=== PATIENT | female | born 1990 | race Caucasian/White ===

== ENCOUNTER 2016-03-10 05:27 | Inpatient (IN) | payer OTHER ==
[2016-03-10] MEDS ORDERED: OXYTOCIN 10 UNIT/ML 1 ML VIAL IM PRN (05:37)
[2016-03-10] MEDS ORDERED: CARBOPROST TROMETHAMINE 250 MCG/ML 1 ML AMP IM PRN (05:37)
[2016-03-10] MEDS ORDERED: TERBUTALINE 1 MG/ML VIAL SQ PRN (05:37)
[2016-03-10] MEDS ORDERED: LIDOCAINE 1% (PF) 10 MG/ML (30 ML SDV) SQ PRN (05:37)
[2016-03-10] MEDS ORDERED: METHYLERGONOVINE 0.2 MG/ML 1 ML AMP IM PRN (05:37)
[2016-03-10] MEDS: LACTATED RINGERS 1,000 ML IV SCH ×2 (05:44→20:36)
[2016-03-10] MEDS ORDERED: OXYTOCIN 30 UNITS/500 ML NS 30 UNIT in SALINE 1 500ML.BAG IV SCH (05:45)
[2016-03-10 06:01] LABS: Basophils % (A) 0 %; CHCM 32.7; Eosinophils # (A) 0.2 k/uL (0-0.7); Eosinophils % (A) 2 %; HCT 35.7 % (34.0-46.0); HDW 2.96; HGB 11.1 gm/dL (11.4-16.0); Luc # (Auto) 0.08; Luc % (Auto) 1; Lymphocytes # (A) 2.3 k/uL (1.0-4.8); Lymphocytes % (A) 26 %; MCHC 31.2 g/dL (31.0-37.0); Mean Platelet Volume 8.2; Monocytes # (A) 0.4 k/uL (0-1.0); Monocytes % (A) 5 %; Neutrophils # (A) 5.8 k/uL (1.3-7.7); Neutrophils % (A) 65 %; RBC 4.46 m/uL (3.80-5.40); RDW 14.2 % (11.5-15.5); WBC 8.9 k/uL (3.8-10.6); WBC (Perox) 9.88
[2016-03-10 06:20] VITALS: BMI 38.0
--- NOTE | 2016-03-10 08:46 | P.HPOB ---
History of Present Illness H&P Date: 03/10/16 Chief Complaint: induction of labor 25-year-old presents at 40 weeks for induction of labor. Her cervix is 2- 3 cm dilated, 70% effaced, -2 station. She is mckenna irregularly. heart tones 135-140 with moderate variability and reactive. Review of Systems All systems: negative Constitutional: Denies chills, Denies fever Eyes: denies blurred vision, denies pain Ears, nose, mouth and throat: Denies headache, Denies sore throat Cardiovascular: Denies chest pain, Denies shortness of breath Respiratory: Denies cough Gastrointestinal: Denies abdominal pain, Denies diarrhea, Denies nausea, Denies vomiting Genitourinary: Denies dysuria, Denies hematuria Musculoskeletal: Denies myalgias Integumentary: Denies pruritus, Denies rash Neurological: Denies numbness, Denies weakness Psychiatric: Denies anxiety, Denies depression Endocrine: Denies fatigue, Denies weight change Past Medical History Past Medical History: No Reported History Additional Past Medical History / Comment(s): Obstetric history: First a vaginal delivery. This is her second . She has had care with me since 10 weeks gestation. A+ abs neg, Rub Imm, RPR NR, HEp B neg, HIV NR, toxo neg. normal 1hr GTT. GBS neg. normal anatomy US at 19 weeks. History of Any Multi-Drug Resistant Organisms: None Reported Past Surgical History: No Surgical Hx Reported Past Anesthesia/Blood Transfusion Reactions: No Reported Reaction Past Psychological History: No Psychological Hx Reported Smoking Status: Never smoker Past Alcohol Use History: None Reported Past Drug Use History: None Reported - Past Family History Father Family Medical History: No Reported History Brother(s) Additional Family Medical History / Comment(s): Appendicitis or other. Medications and Allergies Home Medications Medication Instructions Recorded Confirmed Type Pnv with Ca,No.72/Iron/FA 1 tab PO DAILY 03/10/16 03/10/16 History [ Plus Tablet] Allergies Allergy/AdvReac Type Severity Reaction Status Date / Time No Known Allergies Allergy Verified 03/10/16 05:36 Exam Osteopathic Statement: *. No significant issues noted on an osteopathic structural exam other than those noted in the History and Physical/Consult. - Vital Signs Vital signs: Vital Signs Temp Pulse Resp BP 03/10/16 05:35 96.8 F L 71 16 137/90 Intake and Output 03/09/16 03/10/16 03/10/16 22:59 06:59 14:59 Other: # Voids 1 Weight 113.398 kg Heart: Regular rate and rhythm Lungs: Clear to auscultation bilaterally Abdomen: Soft nontender Extremities negative Homans sign Results Result Diagrams: 03/10/16 05:43 Abnormal Lab Results - Last 24 Hours (Table) 03/10/16 Range/Units 05:43 Hgb 11.1 L (11.4-16.0) gm/dL Assessment and Plan (1) Normal labor Status: Acute Plan: 1. Induction of labor with amniotomy and Pitocin. 2. Anticipate normal vaginal delivery
[2016-03-10] MEDS: BUTORPHANOL 1 MG/ML 1 ML VIAL IV PRN ×2 (09:36→11:37)
[2016-03-10] MEDS ORDERED: diphenhydrAMINE 25 MG CAP PO PRN (13:20)
[2016-03-10] MEDS ORDERED: diphenhydrAMINE 50 MG CAP PO PRN (13:20)
[2016-03-10] MEDS ORDERED: Acetaminophen-Codeine 300-30mg TAB PO PRN ×2 (13:20)
[2016-03-10] MEDS ORDERED: ACETAMINOPHEN TAB 325 MG TAB PO PRN (13:20)
[2016-03-10] MEDS ORDERED: WITCH HAZEL 1 EACH MED..PAD TOPICAL PRN (13:20)
[2016-03-10] MEDS ORDERED: BENZOCAINE/MENTHOL SPRAY 1 GM/SPRAY AEROSOL TOPICAL PRN (13:20)
[2016-03-10] MEDS ORDERED: LANOLIN CREAM 5 GM TUBE TOPICAL PRN (13:20)
[2016-03-10] MEDS ORDERED: diphenhydrAMINE 50 MG/ML 1 ML VIAL IVP PRN ×2 (13:20)
[2016-03-10] MEDS ORDERED: HYDROCORTISONE 2.5% RECTAL CREAM 30 GM TUBE RECTAL PRN (13:20)
[2016-03-10] MEDS ORDERED: ZOLPIDEM 5 MG TAB PO PRN (13:20)
[2016-03-10] MEDS ORDERED: SIMETHICONE 80 MG CHEWABLE PO PRN (13:20)
--- NOTE | 2016-03-10 13:23 | P.PROBDLV ---
Vaginal Delivery Note - . Vaginal Delivery Note: 25-year-old presented at 40 weeks gestation for induction of labor. Her cervix was 2-3 cm dilated, 70% effaced, and -2 station. She is mckenna irregularly. heart tones 135-140 with moderate variability and reactive. Amniotomy was performed at 7:54 AM and clear fluid noted. Pitocin was also started. She progressed throughout the day and was completely dilated by 1302. She pushed, and delivered a viable male infant at 1307 over intact perineum. Head delivered OA, anterior shoulder delivered gentle downward traction followed by posterior shoulder and rest of body. Nose and mouth bulb suctioned , cord clamped and cut, infant placed on mother's abdomen. Apgars 9, 9, weight 6 lbs. 15 oz. Placenta delivered spontaneously, intact with three-vessel cord. Vagina, cervix, perineum inspected. First-degree midline laceration was repaired with 3-0 Vicryl. Estimated blood loss 150 mL. Mother and baby in stable condition.
[2016-03-10] MEDS: OXYTOCIN 30 UNITS/500 ML NS 30 UNIT in SALINE 1 500ML.BAG IV SCH ×2 (15:00→20:37)
[2016-03-10] MEDS: IBUPROFEN 600 MG TAB PO PRN ×2 (16:39→23:49)
[2016-03-10] MEDS: SENNOSIDES-DOCUSATE SODIUM 1 EACH TAB PO SCH (19:56)
[2016-03-11 00:14] VITALS: RESP 16
[2016-03-11] MEDS: SENNOSIDES-DOCUSATE SODIUM 1 EACH TAB PO SCH (07:58)
--- NOTE | 2016-03-11 08:43 | P.DS ---
Providers Date of admission: 03/10/16 05:27 Expected date of discharge: 03/11/16 Attending physician: Pam Palmer Primary care physician: Pam Palmer - Discharge Diagnosis(es) (1) Normal labor Current Visit: Yes Status: Resolved (2) Normal vaginal delivery Current Visit: Yes Status: Acute Hospital Course: Patient presented at 40 weeks for induction of labor. She underwent a normal vaginal delivery. course was on.. She'll be discharged home day #1 in stable condition to follow-up with me in 6 weeks. Plan - Discharge Summary New Discharge Prescriptions: Acetaminophen-Codeine 300-30mg [Tylenol #3] 2 tab PO Q6H PRN #30 tablet PRN Reason: Pain Ibuprofen [Motrin] 600 mg PO Q6HR PRN #30 tab PRN Reason: Mild Pain Or Fever >= 100.5 Discharge Medication List Pnv with Ca,No.72/Iron/FA [ Plus Tablet] 1 tab PO DAILY 03/10/16 [ History] Acetaminophen-Codeine 300-30mg [Tylenol #3] 2 tab PO Q6H PRN #30 tablet [Rx] Ibuprofen [Motrin] 600 mg PO Q6HR PRN #30 tab 03/11/16 [Rx] Follow up Appointment(s)/Referral(s): Pam Palmer DO [Primary Care Provider] - 6 Weeks
[2016-03-11 09:14] VITALS: BP 121/82; PULSE 82; TEMP 97.8
== END 2016-03-11 14:40 | disposition home or self-care (01) | DRG 775 ==
LOC: 4FBP 05:27
PROVIDERS: ADMIT Obstetrics & Gynecology; ATTEND Obstetrics & Gynecology
PROC: 10E0XZZ Delivery of Products of Conception, External Approach (ICD-10-PCS; principal; 2016-03-10)
PROC: 0HQ9XZZ Repair Perineum Skin, External Approach (ICD-10-PCS; principal; 2016-03-10)
PROC: 3E033VJ Introduction of Other Hormone into Peripheral Vein, Percutaneous Approach (ICD-10-PCS; principal; 2016-03-10)
PROC: 10907ZC Drainage of Amniotic Fluid, Therapeutic from Products of Conception, Via Natural or Artificial Opening (ICD-10-PCS; principal; 2016-03-10)
DX: O48.0 Post-term pregnancy (principal); O70.0 First degree perineal laceration during delivery; Z37.0 Single live birth; Z3A.40 40 weeks gestation of pregnancy
CPT/HCPCS: 85025; 88307

== ENCOUNTER 2016-10-17 21:43 | Emergency (ER) | payer BC, OTHER ==
[2016-10-17 21:47] VITALS: BP 141/80; PULSE 78; RESP 18; TEMP 97
[2016-10-17] MEDS ORDERED: predniSONE 50 MG TAB PO STA (22:17)
[2016-10-17] MEDS ORDERED: FAMOTIDINE 20 MG TAB PO STA (22:17)
--- NOTE | 2016-10-17 22:17 | ED ---
Skin/Abscess/FB HPI - General Chief complaint: Skin/Abscess/Foreign Body Stated complaint: Rash/Arms Time Seen by Provider: 10/17/16 21:56 Source: patient Mode of arrival: ambulatory Limitations: no limitations - History of Present Illness Initial comments: 26-year-old Female patient presents to emergency department today with complaints of rash to her anterior thighs, anterior lower legs, as well as her bilateral arms. She states that this started earlier this morning for her. She states that the areas are itchy. She denies any blisters or drainage. She denies any fever, chills, shortness of breath, throat swelling, cough, wheezing , chest pain, headache, abdominal pain, nausea, vomiting, hematuria, dysuria, urinary frequency, urinary urgency, constipation, or diarrhea. Patient denies any new exposures however she did have a cholecystectomy 1 week ago. Patient states that she was unable to even pass would previously and did eat fast food for the first time in a long time today. That she did have a negative test 1 week ago. - Related Data Previous Rx's Medication Instructions Recorded Famotidine [Pepcid] 20 mg PO DAILY #5 tablet 10/17/16 predniSONE 20 mg PO DAILY #3 tab 10/17/16 Allergies Allergy/AdvReac Type Severity Reaction Status Date / Time No Known Allergies Allergy Verified 10/17/16 21:46 Review of Systems ROS Statement: Those systems with pertinent positive or pertinent negative responses have been documented in the HPI. ROS Other: All systems not noted in ROS Statement are negative. Past Medical History Past Medical History: No Reported History Additional Past Medical History / Comment(s): Obstetric history: First a vaginal delivery. This is her second . She has had care with [facility] since 10 weeks gestation. A+ abs neg, Rub Imm, RPR NR, HEp B neg, HIV NR, toxo neg. normal 1hr GTT. GBS neg. normal anatomy US at 19 weeks. History of Any Multi-Drug Resistant Organisms: None Reported Past Surgical History: Cholecystectomy Past Anesthesia/Blood Transfusion Reactions: No Reported Reaction Past Psychological History: No Psychological Hx Reported Smoking Status: Never smoker Past Alcohol Use History: None Reported Past Drug Use History: None Reported - Past Family History Father Family Medical History: No Reported History Brother(s) Additional Family Medical History / Comment(s): Appendicitis or other. General Exam Limitations: no limitations General appearance: alert, in no apparent distress Head exam: Present: atraumatic, normocephalic, normal inspection Eye exam: Present: normal appearance, PERRL, EOMI. Absent: scleral icterus, conjunctival injection, periorbital swelling ENT exam: Present: normal exam, normal oropharynx, mucous membranes moist, other (No evidence of mucosal lesions.) Neck exam: Present: normal inspection. Absent: tenderness, meningismus, lymphadenopathy Respiratory exam: Present: normal lung sounds bilaterally. Absent: respiratory distress, wheezes, rales, rhonchi, stridor Cardiovascular Exam: Present: regular rate, normal rhythm, normal heart sounds. Absent: systolic murmur, diastolic murmur, rubs, gallop, clicks GI/Abdominal exam: Present: soft, normal bowel sounds. Absent: distended, tenderness, guarding, rebound, rigid Extremities exam: Present: full ROM, normal capillary refill, other (Urticarial rash noted to the dorsal aspect of the forearms, anterior thigh, and anterior lower leg. Also noted over the dorsal aspect of the feet. And the dorsal aspect of the hands. No surrounding erythema, skin desquamation, bulla, or petechiae.). Absent: normal inspection, tenderness, pedal edema, joint swelling , calf tenderness Back exam: Present: normal inspection Neurological exam: Present: alert, oriented X3, CN II-XII intact Psychiatric exam: Present: normal affect, normal mood Skin exam: Present: warm, dry, intact, normal color. Absent: rash Course Vital Signs 10/17/16 21:44 Temperature 97.0 F L Pulse Rate 78 Respiratory 18 Rate Blood Pressure 141/80 O2 Sat by Pulse 100 Oximetry Medical Decision Making - Medical Decision Making 26-year-old female patient presents to emergency department for evaluation of rash. Physical examination does show an urticarial rash. Patient is unsure what she may be ALLERGIC to however she states she has eaten fast food today for the first time in a very long time. Patient will be given a dose of 50 mg prednisone and 20 mg of Pepcid while in the emergency department. She'll be discharged home with a 5 day course of Pepcid and a 3 day course of oral prednisone. Patient instructed to take Benadryl every 6 hours as needed. Patient instructed to follow up with her primary care physician in one to 2 days for recheck. Instructed to return immediately for any new, worsening, or concerning symptoms. Patient verbalizes understanding and agrees with this plan. Disposition Clinical Impression: Urticaria Disposition: HOME SELF-CARE Condition: Good Instructions: Urticaria (ED) Additional Instructions: Cool compresses to itchy areas. Benadryl every 6 hours as needed for symptom relief. Apply hydrocortisone cream for itching. Follow-up with primary care physician for recheck in 1-2 days. Return immediately for any new, worsening, or concerning symptoms. Prescriptions: Famotidine [Pepcid] 20 mg PO DAILY #5 tablet predniSONE 20 mg PO DAILY #3 tab Referrals: Nixon Mccarthy MD [REFERRING] - 1-2 days Time of Disposition: 22:12
== END 2016-10-17 22:29 | disposition home or self-care (01) ==
LOC: EC 21:43
DX: L50.9 Urticaria, unspecified (principal)
CPT/HCPCS: 99282 ×2; J7512

== ENCOUNTER → 2019-03-20 | Outpatient (CLI) | payer OTHER ==
--- NOTE | 2019-03-20 08:34 | CT ---
EXAMINATION TYPE: CT brain wo con DATE OF EXAM: 03/20/2019 COMPARISON: None. HISTORY: Severe migraines CT DLP: 945.5 mGycm. Automated Exposure Control for Dose Reduction was Utilized. TECHNIQUE: CT scan of the head is performed without contrast. FINDINGS: There is no acute intracranial hemorrhage, mass effect, or midline shift identified. The ventricles and sulci are within normal limits in size. Melendez-white matter differentiation is maintain ed. Craniocervical junction maintained. The globes are intact and the visualized sinuses are clear. IMPRESSION: Unremarkable study.
== END | disposition home or self-care (01) ==
LOC: RADCTMAIN 11-02 11:26
PROVIDERS: ATTEND Internal Medicine
DX: R51 Headache (principal); R11.2 Nausea with vomiting, unspecified
CPT/HCPCS: 70450

== ENCOUNTER 2023-10-06 10:07 | Emergency (ER) | payer OTHER ==
[2023-10-06 10:22] VITALS: RESP 18
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
[2023-10-06 11:31] VITALS: BP 127/82; PULSE 80; TEMP 97.8
== END 2023-10-06 11:27 | disposition home or self-care (01) ==
LOC: EC 10:07
DX: S13.4XXA Sprain of ligaments of cervical spine, initial encounter (principal); V89.2XXA Person injured in unspecified motor-vehicle accident, traffic, initial encounter; Y92.411 Interstate highway as the place of occurrence of the external cause
CPT/HCPCS: 70450; 72125; 99284